=== PATIENT | female | born 1995 | race Caucasian/White ===

== ENCOUNTER 2022-01-03 17:12 | Emergency (ER) | payer MEDICAID, OTHER ==
[2022-01-03] MEDS ORDERED: TYLENOL 325 MG PO ONE (17:47)
[2022-01-03] MEDS ORDERED: Sodium Chloride 0.9% 1000 ML 1,000 ML IV STA (17:47)
[2022-01-03 18:04] LABS: Basophil (Absolute #) 0.03 x10^3/uL (0-0.4); Eosinophil (Absolute #) 0.09 x10^3/uL (0-0.5); Hematocrit 38.4 % (35-47); Hemoglobin 12.9 g/dL (12.0-16.0); Lymphocyte (Absolute #) 2.65 x10^3/uL (1.0-4.6); Lymphocytes % 30.6 % (24.0-44.0); Mean Cell Volume 100.8 fL (78-100); Mean Corpuscular Hemoglobin 33.9 pg (26-32); Mean Corpuscular Hgb Concent. 33.6 g/dL (32-36); Mean Platelet Volume 10.7 fL (7.5-11.0); Monocyte (Absolute #) 0.55 x10^3/uL (0.0-1.3); Monocytes % 6.4 % (0.0-12.0); Neutrophil % 61.4 % (36.0-66.0); Platelet Count 246 x10^3/uL (150-450); Red Blood Count 3.81 x10^6/uL (4.1-5.4); Red Cell Distribution Width 13.7 % (11.5-14.0); White Blood Count 8.7 x10^3/uL (4.0-10.5)
[2022-01-03] MEDS ORDERED: Sodium Chloride 0.9% 1000 ML 1,000 ML ONE (18:05)
[2022-01-03] MEDS ORDERED: TYLENOL 325 MG ONE (18:05)
--- NOTE | 2022-01-03 18:07 | ERPHSYRPT ---
- History of Present Illness Time Seen by Provider: 01/03/22 17:19 Source: patient Exam Limitations: no limitations Patient Subjective Stated Complaint: abd cramping, 17 weeks Triage Nursing Assessment: pt to ED c/o lower abd pain and cramping onset about 1 week ago. pt reports she is around 17 weeks , just recently found out and has not seen OB yet. pt states she went to have elective ultrasound done at [facility] in [place] on 01/01. states she was told then that the baby had stopped growing around 9 weeks ago. pt rates 7/10 cramping that has been worse over last week. pt denies vaginal bleeding or discharge at this time. Physician History: 46 years old female 5 para 4 at almost 17 weeks gestation per LMP presented in the ER with pelvic cramping for 1 week. Patient reports she had home positive test last week and was seen at elective ultrasound placed in [place] 2 days ago and was told that have no heart tones. She started to have increased cramping today with minimal spotting. Denies passing any tissues. Timing/Duration: week(s) (1), intermittent, worse Activites at Onset: rest Quality: cramping Onset Location: pelvic pain Pain Radiation: none Severity of Pain-Max: mild Severity of Pain-Current: mild Prior abdominal problems: none Sexual intercourse history: non-contributory Modifying Factors: Improves With: nothing Associated Symptoms: denies symptoms Allergies/Adverse Reactions: Iodinated Contrast Media Allergy (Verified 01/03/22 17:21) Difficulty Breathing Home Medications: No Reportable Medications [No Reported Medications] 01/03/22 [History] Hx Tetanus, Diphtheria Vaccination/Date Given: No Hx Influenza Vaccination/Date Given: No Hx Pneumococcal Vaccination/Date Given: No Travel Risk - International Travel Have you traveled outside of the country in past 3 weeks: No - Coronavirus Screening Are you exhibiting any of the following symptoms?: No Close contact with a COVID-19 positive Pt in past 14-21 Days: No - Vaccine Status Have you recieved a Covid-19 vaccination: No - Review of Systems Constitutional: No Symptoms Eyes: No Symptoms Ears, Nose, & Throat: No Symptoms Respiratory: No Symptoms Cardiac: No Symptoms Abdominal/Gastrointestinal: Abdominal Pain Genitourinary Symptoms: , Vaginal Bleeding Musculoskeletal: No Symptoms Skin: No Symptoms Neurological: No Symptoms Psychological: No Symptoms Endocrine: No Symptoms Hematologic/Lymphatic: No Symptoms Immunological/Allergic: No Symptoms - Past Medical History Pertinent Past Medical History: No - Past Surgical History Past Surgical History: Yes Neuro Surgical History: No Pertinent History Cardiac: No Pertinent History Respiratory: No Pertinent History Gastrointestinal: No Pertinent History Genitourinary: No Pertinent History Musculoskeletal: No Pertinent History Female Surgical History: Section Other Surgical History: c section x2 - Social History Smoking Status: Never smoker Exposure to second hand smoke: No Drug Use: none Patient Lives Alone: No - Female History Hx Last Menstrual Period: 08/30/21 Hx Now: Yes - Nursing Vital Signs Nursing Vital Signs: Initial Vital Signs Temperature 98.5 F 01/03/22 17:22 Pulse Rate 108 H 01/03/22 17:22 Respiratory Rate 20 01/03/22 17:22 Blood Pressure 115/91 01/03/22 17:22 O2 Sat by Pulse Oximetry 100 01/03/22 17:22 Pain Scale Pain Intensity 7 - Physical Exam General Appearance: no apparent distress Eye Exam: PERRL/EOMI, eyes nml inspection Ears, Nose, Throat Exam: normal ENT inspection Neck Exam: normal inspection, supple, full range of motion Respiratory Exam: normal breath sounds, lungs clear Cardiovascular Exam: regular rate/rhythm, normal heart sounds Gastrointestinal/Abdomen Exam: soft, normal bowel sounds, No tenderness Back Exam: normal inspection, normal range of motion Extremity Exam: normal inspection, normal range of motion Neurologic Exam: alert, oriented x 3, cooperative Skin Exam: normal color SpO2 Interpretation: normal SpO2: 100 O2 Delivery: Room Air Ordered Tests: Active Orders 24 hr Category Date Time Status IV Insertion STAT Care 01/03/22 17:47 Active NPO (ED) STAT Care 01/03/22 17:47 Active OB >14 WKS 1st GESTATION [US] Stat Exams 01/03/22 19:02 Taken CBC W DIFF Stat Lab 01/03/22 18:02 Completed CMP Stat Lab 01/03/22 18:02 Completed HCG, Quantitative (Inhouse) Stat Lab 01/03/22 18:02 Completed UA W/RFX CULTURE Stat Lab 01/03/22 17:49 Completed Medication Summary Discontinued Medications Generic Name Dose Route Start Last Admin Trade Name Freq PRN Reason Stop Dose Admin Acetaminophen 975 mg 01/03/22 17:47 01/03/22 18:07 Acetaminophen 325 Mg Tablet PO 01/03/22 17:48 975 mg STAT ONE Administration Acetaminophen Confirm 01/03/22 18:05 Acetaminophen 325 Mg Tablet Administered 01/03/22 18:06 Dose 975 mg .ROUTE .STK-MED ONE Sodium Chloride 1,000 mls @ 999 mls/hr 01/03/22 17:47 01/03/22 19:11 Sodium Chloride 0.9% 1000 Ml IV 01/03/22 18:47 Infused .Q1H1M STA Infusion Sodium Chloride Confirm 01/03/22 18:05 Sodium Chloride 0.9% 1000 Ml Administered 01/03/22 18:06 Dose 1,000 mls @ ud .ROUTE .STK-MED ONE Lab/Rad Data: Laboratory Result Diagrams 01/03/22 18:02 01/03/22 18:02 Laboratory Results 01/03/22 01/03/22 01/03/22 Range/Units 18:02 18:02 18:02 WBC 8.7 (4.0-10.5) x10^3/uL RBC 3.81 L (4.1-5.4) x10^6/uL Hgb 12.9 (12.0-16.0) g/dL Hct 38.4 (35-47) % MCV 100.8 H (78-100) fL MCH 33.9 H (26-32) pg MCHC 33.6 (32-36) g/dL RDW 13.7 (11.5-14.0) % Plt Count 246 (150-450) x10^3/uL MPV 10.7 (7.5-11.0) fL Gran % 61.4 (36.0-66.0) % Immature Gran % (Auto) 0.3 (0.00-0.4) % Nucleat RBC Rel Count 0.0 (0.00-0.1) % Eos # (Auto) 0.09 (0-0.5) x10^3/uL Immature Gran # (Auto) 0.03 (0.00-0.03) x10^3u/L Absolute Lymphs (auto) 2.65 (1.0-4.6) x10^3/uL Absolute Monos (auto) 0.55 (0.0-1.3) x10^3/uL Absolute Nucleated RBC 0.00 (0.00-0.01) x10^3u/L Lymphocytes % 30.6 (24.0-44.0) % Monocytes % 6.4 (0.0-12.0) % Eosinophils % 1.0 (0.00-5.0) % Basophils % 0.3 (0.0-0.4) % Absolute Granulocytes 5.30 (1.4-6.9) x10^3/uL Basophils # 0.03 (0-0.4) x10^3/uL Sodium 137 (137-145) mmol/L Potassium 4.0 (3.5-5.1) mmol/L Chloride 105 (98-107) mmol/L Carbon Dioxide 24 (22-30) mmol/L Anion Gap 11.7 (5-15) MEQ/L BUN 9 (7-17) mg/dL Creatinine 0.63 (0.52-1.04) mg/dL Estimated GFR > 60.0 ML/MIN Glucose 105 (74-106) mg/dL Calcium 8.3 L (8.4-10.2) mg/dL Total Bilirubin 0.40 (0.2-1.3) mg/dL AST 24 (14-36) U/L ALT 13 (0-35) U/L Alkaline Phosphatase 62 (38-126) U/L Serum Total Protein 7.4 (6.3-8.2) g/dL Albumin 4.2 (3.5-5.0) g/dL Beta HCG, Quant 85019 mIU/ml Urinalys Dipstick Clnc Urine Color (YELLOW) Urine Appearance (CLEAR) Urine pH (5-6) Ur Specific Clio (1.005-1.025) POC Urine Protein Conf (Negative) Urine Ketones (NEGATIVE) Urine Nitrite (NEGATIVE) Urine Bilirubin (NEGATIVE) Urine Urobilinogen (0-1) mg/dL Urine Leukocytes (NEGATIVE) Urine WBC (Auto) (0-5) /HPF Urine RBC (Auto) (0-2) /HPF U Epithel Cells (Auto) (FEW) /HPF Urine Bacteria (Auto) (NEGATIVE) /HPF Urine RBC (0-5) Alfonso/ul Urine Mucus (Auto) (NEGATIVE) /HPF Ur Culture Indicated? Urine Glucose (NEGATIVE) mg/dL ABO Group A Rh Factor POSITIVE Antibody Screen NEGATIVE (NEGATIVE) 01/03/22 Range/Units 17:49 WBC (4.0-10.5) x10^3/uL RBC (4.1-5.4) x10^6/uL Hgb (12.0-16.0) g/dL Hct (35-47) % MCV (78-100) fL MCH (26-32) pg MCHC (32-36) g/dL RDW (11.5-14.0) % Plt Count (150-450) x10^3/uL MPV (7.5-11.0) fL Gran % (36.0-66.0) % Immature Gran % (Auto) (0.00-0.4) % Nucleat RBC Rel Count (0.00-0.1) % Eos # (Auto) (0-0.5) x10^3/uL Immature Gran # (Auto) (0.00-0.03) x10^3u/L Absolute Lymphs (auto) (1.0-4.6) x10^3/uL Absolute Monos (auto) (0.0-1.3) x10^3/uL Absolute Nucleated RBC (0.00-0.01) x10^3u/L Lymphocytes % (24.0-44.0) % Monocytes % (0.0-12.0) % Eosinophils % (0.00-5.0) % Basophils % (0.0-0.4) % Absolute Granulocytes (1.4-6.9) x10^3/uL Basophils # (0-0.4) x10^3/uL Sodium (137-145) mmol/L Potassium (3.5-5.1) mmol/L Chloride (98-107) mmol/L Carbon Dioxide (22-30) mmol/L Anion Gap (5-15) MEQ/L BUN (7-17) mg/dL Creatinine (0.52-1.04) mg/dL Estimated GFR ML/MIN Glucose (74-106) mg/dL Calcium (8.4-10.2) mg/dL Total Bilirubin (0.2-1.3) mg/dL AST (14-36) U/L ALT (0-35) U/L Alkaline Phosphatase (38-126) U/L Serum Total Protein (6.3-8.2) g/dL Albumin (3.5-5.0) g/dL Beta HCG, Quant mIU/ml Urinalys Dipstick Clnc MAIN LAB Urine Color YELLOW (YELLOW) Urine Appearance CLEAR (CLEAR) Urine pH 6.0 (5-6) Ur Specific Clio 1.020 (1.005-1.025) POC Urine Protein Conf NEGATIVE (Negative) Urine Ketones NEGATIVE (NEGATIVE) Urine Nitrite NEGATIVE (NEGATIVE) Urine Bilirubin NEGATIVE (NEGATIVE) Urine Urobilinogen 0.2 (0-1) mg/dL Urine Leukocytes NEGATIVE (NEGATIVE) Urine WBC (Auto) 0-2 (0-5) /HPF Urine RBC (Auto) NONE (0-2) /HPF U Epithel Cells (Auto) RARE (FEW) /HPF Urine Bacteria (Auto) FEW (NEGATIVE) /HPF Urine RBC NEGATIVE (0-5) Alfonso/ul Urine Mucus (Auto) SLIGHT (NEGATIVE) /HPF Ur Culture Indicated? NO Urine Glucose NEGATIVE (NEGATIVE) mg/dL ABO Group Rh Factor Antibody Screen (NEGATIVE) - Progress Progress: improved, re-examined Air Movement: good Progress Note: 01/03/22 19:18 She is given fluids and Tylenol, on reevaluation feeling better. She is not in any distress. Baseline work-up unremarkable. Ultrasound preliminary report sh ows 9 weeks fetus with no heart tones and 12 weeks poles and close cervix. Discussed with Dr. Sherman, reviewed history, work-up, recommended symptomatic treatment and outpatient follow-up for possible D&C. Plan discussed with patient and family understand and agree with it. Blood Culture(s) Obtained: No Antibiotics given: No Discussed with : Abdoulaye Counseled pt/family regarding: lab results, diagnosis, need for follow-up, rad results - Departure Departure Disposition: Home Clinical Impression: Missed with demise before 20 completed weeks of gestation Condition: Stable Critical Care Time: No Referrals: HUMBERTO DE LEÓN FNP [Primary Care Provider] - Follow up/PCP as directed RADHA SHERMAN DO [ACTIVE STAFF] - Follow up/PCP as directed (call tomorrow for evaluation) Instructions: Miscarriage (DC) Additional Instructions: take Tylenol/ibuprofen as needed for pain. Follow-up with [facility] for reevaluation early next week. Return to ER for worsening cramping or if having heavy vaginal bleeding, passage of tissue etc.
[2022-01-03 18:28] LABS: Bacteria FEW /HPF (NEGATIVE); Epithelial Cells RARE /HPF (FEW); Mucus SLIGHT /HPF (NEGATIVE); WBC 0-2 /HPF (0-5)
[2022-01-03 18:29] LABS: Appearance CLEAR (CLEAR); Bilirubin NEGATIVE (NEGATIVE); Dipstick done @ ? MAIN LAB; Glucose NEGATIVE (NEGATIVE); Ketones NEGATIVE (NEGATIVE); Nitrite NEGATIVE (NEGATIVE); Protein,Urine Dip NEGATIVE (Negative); RBC NEGATIVE Ery/ul (0-5); Urine Cultured Indicated? NO; Urobilinogen 0.2 mg/dL (0-1)
[2022-01-03 18:36] LABS: ALBUMIN 4.2 g/dL (3.5-5.0); ALKALINE PHOSPHATASE 62 U/L (38-126); ANION GAP 11.7 MEQ/L (5-15); BLOOD UREA NITROGEN 9 mg/dL (7-17); CHLORIDE 105 mmol/L (98-107); Calcium 8.3 mg/dL (8.4-10.2); Carbon Dioxide 24 mmol/L (22-30); Creatinine 1 0.63 mg/dL (0.52-1.04); EST GLOMERULAR FILTRATION RATE > 60.0 ML/MIN; Glucose 105 mg/dL (74-106); HCG, Quantitative (Inhouse) 12515 mIU/ml; SGOT/AST 24 U/L (14-36); SGPT/ALT 13 U/L (0-35); SODIUM 137 mmol/L (137-145); Total Protein 7.4 g/dL (6.3-8.2)
[2022-01-03 18:48] LABS: ABO TYPING A; Antibody Screen NEGATIVE (NEGATIVE); RH TYPING POSITIVE
[2022-01-03 19:36] VITALS: BP 114/61; PULSE 78; O2SAT 98
--- NOTE | 2022-01-04 09:00 | XRAY ---
Indication: Cramping. Two-dimensional transabdominal early OB ultrasound performed. Comparison: None There is a single viable intrauterine gestational sac with presence of a single pole. Mean gestational sac diameter is 5.81 cm corresponding to 12 weeks 5 days. Mean crown-rump length is 2.35 cm corresponding to 9 weeks 0 days. No heart tones detected. Cervix is closed. Neither ovaries visualized. No suspicious adnexal mass or free fluid. Impression: Single intrauterine measuring 10 weeks 6 days. No heart tones concerning for demise. Comment: Preliminary report was given.
== END 2022-01-03 19:35 | disposition home or self-care (01) ==
LOC: ED 17:12
DX: O02.1 Missed abortion (principal); R10.2 Pelvic and perineal pain; Z28.310 Unvaccinated for COVID-19
CPT/HCPCS: 36000; 36415; 76805; 80053; 81015; 84702; 85025; 86850; 86900; 86901; 96360; 99284; A9270-GY

== ENCOUNTER 2022-01-12 07:24 | Day surgery (SDC) | payer OTHER ==
[2022-01-12] MEDS ORDERED: Lactated Ringers 1,000 ML IV ONE (07:40)
[2022-01-12] MEDS ORDERED: Lactated Ringers 1,000 ML IV SCH (08:00)
[2022-01-12 08:17] VITALS: O2SAT 100
[2022-01-12] MEDS ORDERED: DIPRIVAN 200 MG/20 ML IV ONE (09:32)
[2022-01-12] MEDS ORDERED: Zofran 4 MG/2 ML VIAL ONE (09:32)
[2022-01-12] MEDS ORDERED: Decadron 4 MG INJ ONE (09:32)
[2022-01-12] MEDS ORDERED: SUBLIMAZE 100 MCG/2 ML ONE (09:32)
[2022-01-12] MEDS ORDERED: Xylocaine-Mpf 2% 5 Ml Vial ONE (09:32)
[2022-01-12] MEDS ORDERED: VIBRAMYCIN 100 MG*** 100 MG in Dextrose 5%/Water IV Soln. 100ML PLUS BAG 100 ML IV SCH (10:00)
[2022-01-12] MEDS ORDERED: Thrombin-JMI 5000 UNITS TP ONE (10:20)
[2022-01-12] MEDS ORDERED: TORAdol 30 mg Injection ONE (10:50)
[2022-01-12] MEDS ORDERED: MORPHINE SULFATE 2 MG INJ ONE ×2 (10:57→11:06)
[2022-01-12] MEDS ORDERED: Hydromorphone 1 mg/ml Injection ONE (11:15)
[2022-01-12 12:30] VITALS: PULSE 88
[2022-01-12 12:35] VITALS: BP 100/62
--- NOTE | 2022-01-13 08:02 | OP ---
SURGERY DATE/TIME: 01/12/2022 0959 PREOPERATIVE DIAGNOSIS: Missed at approximately 9 weeks gestation. POSTOPERATIVE DIAGNOSIS: Missed at approximately 9 weeks gestation. PROCEDURE: Suction, dilatation and curettage. SURGEON: Jesus Sherman D.O. LABORER PRESTRESSED CONCRETE: Airam Mata, ophthalmology surgical technician. ANESTHESIA: General. ESTIMATED BLOOD LOSS: Minimal. COMPLICATIONS: None. INDICATIONS: The risks, benefits, indications and alternatives of the procedure were reviewed with the patient prior to procedure. The patient understood the risk of infection, bleeding, bowel injury, bladder injury, ureteral injury, uterine perforation, pelvic infection, thromboembolic disorder associated with this surgery and desires to have this surgery as a possible means to alleviate her current medical condition. DESCRIPTION OF PROCEDURE AND FINDINGS: At this point the patient is taken to the operating room, given general sedation, placed in dorsal lithotomy position, prepped and draped in the usual sterile fashion. A weighted speculum is then placed in the patient's vagina and the anterior lip of the cervix is grasped with a single tooth tenaculum. Endocervical dilators were advanced through the endocervical canal as a means to dilate the cervix. A #9 curved suction Vacurette was then placed into the fundus of the uterus where the machine was turned on for suctioning and the entire uterine content products of conception was removed without complication. There was minimal bleeding noted after complete suctioning. After complete suctioning a curette was then placed into the fundus of the uterus and curettage was performed in all quadrants of the uterus retrieving the remaining tissue. From this point all instruments were removed from the patient's vaginal region. The patient was taken out of the dorsal lithotomy position and was taken out of anesthesia and was then taken to the recovery room in stable condition. All instruments and laps were accounted for x2.
== END 2022-01-12 12:20 | disposition home or self-care (01) ==
LOC: SDC 07:24
PROVIDERS: ATTEND Obstetrics & Gynecology
DX: O02.1 Missed abortion (principal)
CPT/HCPCS: 36415; 86901; J1100; J1170; J1885; J2270; J2405; J2704; J3010